=== PATIENT | female | born 1930 | race Caucasian/White ===

== ENCOUNTER 2016-10-27 15:36 | Outpatient (CLI) | payer MEDICARE, OTHER ==
[2016-01-31 22:14] VITALS: BP 169/69
== END 2016-10-27 15:38 ==
LOC: LAB 15:36
PROVIDERS: ATTEND Family Medicine
DX: E03.9 Hypothyroidism, unspecified (principal); R30.0 Dysuria
CPT/HCPCS: 36415; 84443; 87088; 87186

== ENCOUNTER 2017-01-21 14:28 | Outpatient (CLI) | payer MEDICARE, OTHER ==
[2016-01-31 22:14] VITALS: BP 169/69
== END 2017-01-21 14:30 ==
LOC: LABRHC 14:28
PROVIDERS: ATTEND Family Medicine
DX: N39.0 Urinary tract infection, site not specified (principal)
CPT/HCPCS: 87086; 87186

== ENCOUNTER 2017-04-04 10:45 | Outpatient (CLI) | payer MEDICARE, OTHER ==
[2016-01-31 22:14] VITALS: BP 169/69
== END 2017-04-04 13:04 ==
LOC: LABRHC 10:45
PROVIDERS: ATTEND Family Medicine
DX: R82.90 Unspecified abnormal findings in urine (principal)
CPT/HCPCS: 87086; 87186

== ENCOUNTER 2017-08-17 15:03 | Outpatient (CLI) | payer MEDICARE, OTHER ==
[2016-01-31 22:14] VITALS: BP 169/69
[2017-08-17 15:18] LABS: BASOPHILS % 0.3 (0.0-1.5); EOSINOPHILS % 2.7 % (0.0-6.8); MEAN CORPUSCULAR HEMOGLOBIN 30.9 pg (28.0-34.0); MONOCYTES % 3.6 % (0.0-11.0); NEUTROPHILS # 3.4 # k/uL (1.4-7.7)
[2017-08-17 16:06] LABS: eGFR (African) > 60; eGFR (Non-African) > 60
== END 2017-08-17 15:04 ==
LOC: LAB 15:03
PROVIDERS: ATTEND Family Medicine
DX: R14.0 Abdominal distension (gaseous) (principal); E03.9 Hypothyroidism, unspecified
CPT/HCPCS: 36415; 80053; 84443; 85025

== ENCOUNTER 2018-02-22 09:43 | Outpatient (CLI) | payer MEDICARE, OTHER ==
[2016-01-31 22:14] VITALS: BP 169/69
== END 2018-02-22 09:44 ==
LOC: RAD 09:43
PROVIDERS: ATTEND Family Medicine
DX: Z78.0 Asymptomatic menopausal state (principal); Z13.6 Encounter for screening for cardiovascular disorders
CPT/HCPCS: 36415; 77080; 80061

== ENCOUNTER 2018-04-15 09:22 | Emergency (ER) | payer MEDICARE, OTHER ==
--- NOTE | 2018-04-15 09:48 | ED Physician Documentation ---
General Adult - HISTORIAN Historian: patient - HPI Chief Complaint: General Adult Onset: days ago (2) Further Comments: yes (87 year old female patient presents with complaint of generalized weakness, "shaky". Patient c/o cloudy, dark urine. States she has felt worse over the past 2 days.) - ROS CONST: weakness. denies: fever, sweating, recent illness, chills EYES/ENT: none CVS/RESP: none GI/: other (dysuria) MS/SKIN/LYMPH: none NEURO/PSYCH: denies: headache, fainting, dizziness, tingling, numbness, difficulty walking, difficulty with speech, anxiety, depression, other - PAST HX Past History: hypertension, other (hypothyroidism) Surgeries/Procedures: hysterectomy Allergies/Adverse Reactions: Allergies Allergy/AdvReac Type Severity Reaction Status Date / Time Sulfa (Sulfonamide AdvReac Intermediate Itching Verified 04/15/18 09:46 Antibiotics) Home Medications: Ambulatory Orders Medication Instructions Recorded Nitrofurantoin Monohyd/M-Cryst 100 mg PO BID #14 capsule 04/15/18 [Macrobid] - SOCIAL HX Smoking History: non-smoker - FAMILY HX Family History: No - VITAL SIGNS Vital Signs: Vital Signs Temp Pulse Resp BP Pulse Ox 169/69 01/31/16 22:05 - REVIEWED ASSESSMENTS Nursing Assessment Reviewed: Yes Vitals Reviewed: Yes Progress - Progress Progress: Reviewed previous Urine cultures and sensitivities. Resistance to fluoroquinolones noted; patient allergic to Bactrim. Will place on macrobid. Reviewed discharge instructions with patient; verbalized understanding. ED Results Lab/Radiology - Radiology Radiology Impressions: Chest, PA and lateral History: Cough Findings: Infiltrate or mass is noted in the lingular segment of the left upper lobe. There is no pleural effusion or pneumothorax. Heart size and pulmonary vascularity are normal. Impression: Left lung infiltrate or mass; computed tomography recommended for further evaluation. Electronically signed on Apr 15, 2018 9:41:19 AM CDT by: Kyree Rodriguez - Orders Orders: ED Orders Category Date Time Status CBC/PLATELET/DIFF Stat Lab 04/15/18 09:36 Ordered CMP Stat Lab 04/15/18 09:36 Ordered UA W/MICRO IF INDICATED Stat Lab 04/15/18 09:36 Ordered General Adult Physical Exam - PHYSICAL EXAM GENERAL APPEARANCE: mild distress EENT: eye inspection normal, ENT inspection normal, pharynx normal, no signs of dehydration, KARO, no nystagmus, TM's nml RESPIRATORY: no resp distress, chest non-tender, breath sounds normal CVS: reg rate & rhythm, heart sounds normal, equal pulses, no murmur, no gallop , PMI nml, no JVD, no friction rub, 24 ABDOMEN: soft, no organomegaly, normal bowel sounds, no abdominal bruit, no distension BACK: normal inspection, no CVA tenderness SKIN: normal color, warm/dry, NR, INT, PAL, DR EXTREMITIES: non-tender, normal range of motion, no evidence of injury, no edema , J, 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 Avoid caffeinated beverages You may want to try Azo over the counter for urinary pain. Follow package directions Cranberry juice will help with symptoms. Tylenol every 4 hours as needed for pain/fever or ibuprofen every 6 hours as needed for pain and fever See your primary care provider for a repeat UA 48 hours after completing your antibiotic. Condition: Stable Disposition: 01 HOME, SELF-CARE Decision to Admit: NO Decision Time: 10:43
[2018-04-15 10:06] LABS: BASOPHILS % 0.5 (0.0-1.5); EOSINOPHILS % 4.2 % (0.0-6.8); MEAN CORPUSCULAR HEMOGLOBIN 31.2 pg (28.0-34.0); MONOCYTES % 5.5 % (0.0-11.0); NEUTROPHILS # 2.4 # k/uL (1.4-7.7)
[2018-04-15 10:37] LABS: eGFR (African) > 60; eGFR (Non-African) > 60
[2018-04-15 11:05] VITALS: BP 150/65
[2018-04-16 07:01] LABS: APPEARANCE,URINE CLOUDY (CLEAR); COLOR,URINE YELLOW (YELLOW); OCCULT BLOOD,URINE NEGATIVE (NEGATIVE); UROBILINOGEN URINE 0.2 Eu (0.2-1.0)
== END 2018-04-15 11:03 | disposition home or self-care (01) ==
LOC: ED 09:22
DX: N30.00 Acute cystitis without hematuria (principal)
CPT/HCPCS: 80053; 81002; 85025; 87086; 87186; 99283

== ENCOUNTER 2018-04-28 16:02 | Outpatient (CLI) | payer MEDICARE, OTHER | END 2018-04-28 16:07 | LOC: LABRHC 16:02 | PROVIDERS: ATTEND Family Medicine | DX: N39.0 Urinary tract infection, site not specified (principal) | CPT/HCPCS: 87086 ==

== ENCOUNTER 2018-05-31 10:32 | Outpatient (CLI) | payer MEDICARE, OTHER ==
--- NOTE | 2018-05-31 18:15 | Diagnostic Imaging Report ---
ORESTES YANG [facility] [address] [facility] [id number] Report Submission Date: May 31, 2018 11:28:29 AM CDT Patient Study Name: JANETH OJEDA Date: May 31, 2018 10:48:32 AM CDT Modality Type: DX Gender: F Description: LOWER EXTREMITY : 31 Institution: [facility] Physician: ORESTES YANG Examination: Plain film feet History: BILAT FEET, PAIN IN BOTH FEET FOR ABOUT 6 MONTHS, WORSE ON LEFT, PT STATES HX OF ARTHRITIS Findings: 3 views of the right and left foot demonstrates articular degenerative changes. Osteopenia. No fracture or dislocation. No soft tissue swelling. Calcaneal spurs. No joint effusion. Impression: Osteopenia and degenerative changes. No acute cortical abnormality. Electronically signed on May 31, 2018 11:28:29 AM CDT by: Justin AMEZCUA
== END 2018-05-31 10:34 ==
LOC: RAD 10:32
DX: M19.072 Primary osteoarthritis, left ankle and foot (principal)

== ENCOUNTER 2018-07-04 17:16 | Outpatient (CLI) | payer MEDICARE, OTHER | END 2018-07-04 17:17 | LOC: LABRHC 17:16 | PROVIDERS: ATTEND Physician Assistant | DX: R30.0 Dysuria (principal) | CPT/HCPCS: 87086 ==

== ENCOUNTER 2018-07-10 07:06 | Day surgery (SDC) | payer MEDICARE, OTHER ==
[2018-07-10] MEDS ORDERED: SALINE FLUSH 10 ML DISP.SYRIN IVF ONE (08:00)
[2018-07-10] MEDS ORDERED: PROPOFOL 500 MG/50 ML VIAL IV ONE (08:00)
[2018-07-10] MEDS ORDERED: LACTATED RINGERS 1,000 ML IV.SOLN IV ONE (08:00)
--- NOTE | 2018-07-11 10:19 | GI Report ---
REFERRING PHYSICIAN: DEE Rowe WIRE BRUSHER: Chirag Torres MD PROCEDURE MEDICATION: Propofol as per anesthesia. INDICATIONS: Patient is referred because of a family history of colon cancer with 2 first- degree relatives. Her brother had colon cancer in his 60s and her mother had colon cancer in her 90s. Patient has had previous polyps on colonoscopy in [place]. This is her first colonoscopy here at [facility]. She denies change in bowel habits. She is actually very alert and oriented for her age. She denies any changes in her stools or bleeding. PROCEDURE PERFORMED: Colonoscopy and biopsies. PROCEDURE: An Olympus video colonoscope was advanced to the rectum. 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 A slightly atonic redundant colon. We were able to reach the cecum. The appendiceal orifice was clear. The terminal ileum looked normal. Around the ileocecal valve, the mucosa seemed a little prominent. I did take some biopsies. It is not definitely a polyp or lesion. I think it probably was just a little inverted or mucosa that had telescoped through the valve into the cecum around. I photographed it and biopsied it just to make sure no obvious lesion there. The main part of the colon, ascending colon, transverse colon, and descending colon, a few scattered diverticula. No intraluminal lesions noted. The sigmoid, again, had a few diverticula. Retroflexion of the rectum was normal. Patient tolerated the procedure well. FINDINGS: 1. Mild diverticular disease of the colon. 2. Ileocecal valve slightly prominent. Biopsies taken. I do not suspect pathology. RECOMMENDATIONS: 1. Again, pending on her health whether one would look again in 5 years or not. We will leave that up to her family physician depending on how she is doing at that point. 2. We will see what the biopsies show. 3. Continue high fiber in the diet. cc: DEE Rowe [facility] HEALTH SERVICESJulian
== END 2018-07-10 07:08 ==
LOC: OPSURG 07:06
PROVIDERS: ATTEND Internal Medicine Gastroenterology
DX: D12.0 Benign neoplasm of cecum (principal)
CPT/HCPCS: 45380; 88305; J2704; J7120; S1016

== ENCOUNTER 2018-09-21 13:15 | Outpatient (CLI) | payer MEDICARE, OTHER | END 2018-09-21 13:16 | LOC: LABRHC 13:15 | PROVIDERS: ATTEND Physician Assistant | DX: R30.0 Dysuria (principal) | CPT/HCPCS: 87086 ==

== ENCOUNTER 2018-10-03 12:14 | Outpatient (CLI) | payer MEDICARE, OTHER ==
[2018-10-03 15:28] LABS: APPEARANCE,URINE CLEAR (CLEAR); COLOR,URINE YELLOW (YELLOW); OCCULT BLOOD,URINE NEGATIVE (NEGATIVE)
[2018-10-03 15:29] LABS: PH URINE 5.5 (5.0 - 8.0); UROBILINOGEN URINE 0.2 Eu (0.2-1.0)
== END 2018-10-03 14:00 ==
LOC: LAB 12:14
PROVIDERS: ATTEND Physician Assistant
DX: R30.0 Dysuria (principal)
CPT/HCPCS: 81002

== ENCOUNTER 2018-10-13 11:16 | Outpatient (CLI) | payer MEDICARE, OTHER ==
[2018-10-13 19:01] LABS: ADENOVIRUS F 40/41 NOT DETECTED (Not Detected); ASTROVIRUS NOT DETECTED (Not Detected); C. DIFFICILE (TOXIN A/B) NOT DETECTED (Not Detected); CRYPTOSPORIDIUM NOT DETECTED (Not Detected); CYCLOSPORA CAYETANENSIS NOT DETECTED (Not Detected); GIARDIA LAMBLIA NOT DETECTED (Not Detected); ROTAVIRUS A NOT DETECTED (Not Detected); SAPOVIRUS NOT DETECTED (Not Detected); VIBRIO CHOLERAE NOT DETECTED (Not Detected)
== END 2018-10-13 11:25 ==
LOC: LAB 11:16
PROVIDERS: ATTEND Physician Assistant
DX: Z53.9 Procedure and treatment not carried out, unspecified reason (principal)
CPT/HCPCS: 87507

== ENCOUNTER 2019-05-23 10:25 | Outpatient (CLI) | payer MEDICARE, OTHER ==
--- NOTE | 2019-05-23 13:40 | Diagnostic Imaging Report ---
FREDDY BOSCH [facility] [address] [id number] Report Submission Date: May 23, 2019 11:09:18 AM CDT Patient Study Name: JANETH OJEDA Date: May 23, 2019 10:33:05 AM CDT Modality Type: US Gender: F Description: US AAA SCREEN MEDICARE : 31 Institution: [facility] Physician: FREDDY BOSCH Examination: Ultrasound aorta History: Evaluate for aneurysm Comparison exams: None available Findings: Proximal aorta measures 2.3 cm maximally. Mid aorta measures 1.9 cm maximally. Distal aorta measures 1.6 cm maximally. Iliac vessels measure 1.2 cm. No peripheral calcification or thrombus. Impression: No evidence for abdominal aortic aneurysm Electronically signed on May 23, 2019 11:09:18 AM CDT by: Justin AMEZCUA
== END 2019-05-23 10:27 ==
LOC: RAD 10:25
PROVIDERS: ATTEND Nurse Practitioner Family
DX: Z13.6 Encounter for screening for cardiovascular disorders (principal)